=== PATIENT | male | born 1935 | race American Indian/Alaskan Native ===

== ENCOUNTER 2022-03-13 11:07 | Day surgery (SDC) | payer MEDICARE, OTHER ==
[2022-03-13] VITALS (10 sets, daily range): BP systolic 130–182; BP diastolic 68–91
[~2022-03-13] VITALS: Ht 177.8 cm; Wt 154.2 kg
[~2022-03-13 11:07] MED LIST: ASPI-1265 PO; FENO145T38 PO; FLO0.4C PO; GABA-532 PO; LANTUS SQ; LISI40TA13 PO; ROSU10TA2 PO
[2022-03-13] MEDS ORDERED: diphenhydrAMINE 25mg capsule PO PRN (11:40)
[2022-03-13] MEDS ORDERED: LORazepam 0.5 MG tablet PO PRN (11:40)
[2022-03-13] MEDS ORDERED: normal saline 1,000 ML IV SCH (11:40)
[2022-03-13] MEDS ORDERED: midazolam 1 mg/ML 2ml injection ONE (12:08)
[2022-03-13] MEDS ORDERED: heparin 1,000unit/ml 10ml vial 10 ML ONE (12:08)
[2022-03-13] MEDS ORDERED: nitroGLYCERIN-Tridil 50MG/D5W 250 ML IV ONE (12:08)
[2022-03-13] MEDS ORDERED: verapamil 2.5 mg/ml inj IV ONE (12:08)
[2022-03-13] MEDS ORDERED: iohexol 350MG/ML 100ml bottle IV ONE (12:08)
[2022-03-13] MEDS ORDERED: fentaNYL/PF 50MCG/1 ML 2ML syringe ONE (12:08)
[2022-03-13] MEDS ORDERED: LIDOcaine 1%/PF 5ML 10 MG/ML VIAL ONE ×2 (12:08→14:13)
[2022-03-13] MEDS ORDERED: LOSA100T57 PO (12:41)
[2022-03-13 14:12] LABS: ISTAT HGB ART 14.3 g/dl (14.0-18.0); ISTAT Hct ART 42 %PCV (42-52); ISTAT O2 SATURATION ARTERIAL 86 % (95-98); ISTAT SOURCE ART
[2022-03-13] MEDS ORDERED: hydrALAZINE 20mg/ml inj. IV ONE (14:29)
[2022-03-13] MEDS ORDERED: HYDROcodone/acetaminophen 5mg/325mg tablet PO PRN ×2 (15:30→15:50)
[2022-03-13] MEDS ORDERED: HYDROcodone/acetaminophen 10/325mg tab PO PRN (15:30)
[2022-03-13] MEDS: HYDROcodone/acetaminophen 10/325mg tab PO PRN ×2 (15:43→19:50)
--- NOTE | 2022-03-13 16:18 | NUR ---
Brought pt lunch tray as requested. 250ml oral fluid intake.
--- NOTE | 2022-03-13 16:45 | NUR ---
Pt ate 100% of lunch tray 250ml oral fluid intake.
--- NOTE | 2022-03-13 18:05 | NUR ---
Problems reprioritized. Patient report given, questions answered & plan of care reviewed with Leticia TRUJILLO.
--- NOTE | 2022-03-13 18:06 | NUR ---
Bedside report received from CASSANDRA Govea. Vasc band in place to right radial artery. No signs of bleeding or hematoma. Arterial puncture site to right groin stable with CDI dressing. No signs of bleeding or hematoma. Distal pulse intact with doppler check.
[2022-03-14 06:19] LABS: ISTAT Hct MIX 40 %PCV (42-52); ISTAT O2 SATURATION MIX VENOUS 65 % (60-80); ISTAT SOURCE VEN
== END 2022-03-13 20:19 | disposition home or self-care (01) ==
LOC: SSTAY O 11:07 → EDBD 11:07 → SSTAY O 20:19
PROVIDERS: ATTEND Student in an Organized Health Care Education/Training Program
DX: I35.0 Nonrheumatic aortic (valve) stenosis (principal); I12.9 Hypertensive chronic kidney disease with stage 1 through stage 4 chronic kidney disease, or unspecified chronic kidney disease; E78.5 Hyperlipidemia, unspecified; I73.9 Peripheral vascular disease, unspecified; Z79.899 Other long term (current) drug therapy; N18.9 Chronic kidney disease, unspecified; G89.29 Other chronic pain; Z98.890 Other specified postprocedural states; Z79.4 Long term (current) use of insulin; Z88.8 Allergy status to other drugs, medicaments and biological substances
CPT/HCPCS: 82803; 82948; 85014; 93005; 93456; 99152; 99153; C1769; C1894; J0360; J1644; J2250; J3010; J3490; J7030; Q0163; Q9967; A4620; A5120; A6258; A6402

== ENCOUNTER 2022-07-20 10:21 | Outpatient (CLI) | payer MEDICARE, OTHER ==
[~2022-07-20 10:21] MED LIST changes: -ASPI-1265 PO; -FENO145T38 PO; -LISI40TA13 PO; +LOSA100T57 PO
[2022-07-20 11:09] LABS: BASOPHILS # (AUTO) 0.1 X10'3 (0-0.2); BASOPHILS % (AUTO) 0.8 % (0-1); EOSINOPHILS # (AUTO) 0.1 X10'3 (0-0.9); EOSINOPHILS % (AUTO) 1.2 % (0-6); HEMATOCRIT 43.1 % (42.0-52.0); HEMOGLOBIN 13.7 g/dl (14.0-17.9); LYMPHOCYTES # (AUTO) 0.8 X10'3 (1.1-4.8); LYMPHOCYTES % (AUTO) 8.5 % (21-51); MEAN CORPUSCULAR HEMOGLOBIN 28.2 PG (27.0-31.0); MEAN CORPUSCULAR HGB CONC 31.9 g/dL (33.0-36.5); MEAN CORPUSCULAR VOLUME 88.3 FL (78-98); MEAN PLATELET VOLUME 8.9 FL (7.4-10.4); MONOCYTES # (AUTO) 0.8 X10'3 (0-0.9); MONOCYTES % (AUTO) 8.6 % (2-12); NEUTROPHILS # (AUTO) 7.2 X10'3 (1.8-7.7); NEUTROPHILS % (AUTO) 80.9 % (42-75); PLATELET COUNT 155 X10'3 (140-440); RED BLOOD COUNT 4.87 X10'6 (4.70-6.10); RED CELL DISTRIBUTION WIDTH 14.8 % (11.5-14.5); WHITE BLOOD COUNT 8.9 X10'3 (4.5-11.0)
[2022-07-20 11:16] LABS: APTT 27 SECONDS (22-32)
[2022-07-20 11:18] LABS: ALANINE AMINOTRANSFERASE 30 U/L (12-78); ALBUMIN 3.5 G/DL (3.4-5.0); ALBUMIN/GLOBULIN RATIO 0.9 (1.1-1.5); ALKALINE PHOSPHATASE 69 IU/L (46-116); ANION GAP 11 (8-16); ASPARTATE AMINO TRANSFERASE 24 U/L (10-37); BILIRUBIN,TOTAL 0.8 MG/DL (0.1-1.0); BLOOD UREA NITROGEN 23 MG/DL (7-18); BUN/CREATININE RATIO 15.4 (5.4-32.0); CHLORIDE 103 MMOL/L (99-107); CREATININE 1.49 MG/DL (0.60-1.10); GLUCOSE 117 MG/DL (70-104); SODIUM 139 MMOL/L (135-145); TOTAL CARBON DIOXIDE 25.5 MMOL/L (24-32); TOTAL PROTEIN 7.3 G/DL (6.4-8.2); eGFR 45 ML/MIN
[2022-07-20] MEDS ORDERED: IODIXANOL 320 MG/ML INFUS..BTL 100ML IV ONE (11:34)
== END 2022-07-20 23:59 | disposition home or self-care (01) ==
LOC: RAD 10:21
PROVIDERS: ATTEND Internal Medicine Cardiovascular Disease
DX: I35.0 Nonrheumatic aortic (valve) stenosis (principal); R06.02 Shortness of breath; I65.29 Occlusion and stenosis of unspecified carotid artery; I70.0 Atherosclerosis of aorta; J98.4 Other disorders of lung
CPT/HCPCS: 36415; 71046; 71275; 74174; 80053; 85025; 85610; 85730; 94010; 94727; 94729; J3490; Q9967

== ENCOUNTER 2024-04-09 14:25 | Inpatient (IN) | payer MEDICARE, OTHER ==
[~2024-04-09] VITALS: Ht 177.8 cm; Wt 148.6 kg
[~2024-04-09 14:25] MED LIST changes: +ALBU6.7H14 INH; +ASPI-611 PO; +BENZ-111 PO; +FURO40TA4 PO; +HYDR-3972 PO; +LACT1CAP26 PO; -LOSA100T57 PO; +LOSA50TA64 PO; +METO-395 PO; +POTA-366 PO; -ROSU10TA2 PO; +ROSU40TA PO
[2024-04-09] MEDS ORDERED: heparin 25,000 UNIT/250ml bag 250 ML IV PRN ×2 (14:40→16:35)
[2024-04-09] MEDS ORDERED: heparin 10,000 units/1 ML INJ IV PRN ×2 (14:45→16:35)
[2024-04-09] MEDS: heparin 25,000 UNIT/250ml bag 250 ML IV PRN (15:00)
[2024-04-09] MEDS: MESSAGE TO NURSING IV ONE ×2 (15:01→23:29)
[2024-04-09 15:05] LABS: BASOPHILS # (AUTO) 0.1 X10'3 (0-0.2); BASOPHILS % (AUTO) 0.8 % (0-1); EOSINOPHILS # (AUTO) 0.1 X10'3 (0-0.9); EOSINOPHILS % (AUTO) 1.3 % (0-6); HEMATOCRIT 38.5 % (42.0-52.0); HEMOGLOBIN 12.5 g/dl (14.0-17.9); LYMPHOCYTES # (AUTO) 0.9 X10'3 (1.1-4.8); LYMPHOCYTES % (AUTO) 9.3 % (21-51); MEAN CORPUSCULAR HEMOGLOBIN 28.9 PG (27.0-31.0); MEAN CORPUSCULAR HGB CONC 32.5 g/dL (33.0-36.5); MEAN CORPUSCULAR VOLUME 88.8 FL (78-98); MEAN PLATELET VOLUME 9.7 FL (7.4-10.4); MONOCYTES # (AUTO) 0.8 X10'3 (0-0.9); NEUTROPHILS % (AUTO) 80.6 % (42-75); PLATELET COUNT 94 X10'3 (140-440); RED BLOOD COUNT 4.33 X10'6 (4.70-6.10); RED CELL DISTRIBUTION WIDTH 15.1 % (11.5-14.5)
[2024-04-09 15:16] LABS: INR 1.1 INR; PROTHROMBIN TIME 11.3 SECONDS (9.0-12.0)
[2024-04-09 15:23] LABS: ALBUMIN 3.3 G/DL (3.4-5.0); ANION GAP 12 (8-16); BLOOD UREA NITROGEN 49 MG/DL (7-18); BUN/CREATININE RATIO 25.1 (10.0-20.0); CALCIUM 8.6 MG/DL (8.5-10.1); CHLORIDE 106 MMOL/L (99-107); CREATININE 1.95 MG/DL (0.60-1.10); GLUCOSE 84 MG/DL (70-104); POTASSIUM 5.3 MMOL/L (3.5-5.1); PRO BRAIN NATRIURETIC PEPTIDE 10131 PG/ML (0-450); SODIUM 140 MMOL/L (135-145); TOTAL CARBON DIOXIDE 22.4 MMOL/L (24-32); eCRCL 28 ML/MIN; eGFR 33 ML/MIN
[2024-04-09] MEDS: CefTRIAXone/D5W-Rocephin 1gm 50 ML IV ONE ×2 (15:35→18:08)
[2024-04-09] MEDS ORDERED: ondansetron/PF 4mg/2ml inj IV PRN (16:15)
[2024-04-09] MEDS ORDERED: potassium Cl 20 mEq SR tablet PO PRN ×2 (16:15)
[2024-04-09] MEDS ORDERED: magnesium sulf-water 4G/100mL 100 ML IV PRN (16:15)
[2024-04-09] MEDS ORDERED: magnesium Cl slow-release 64mg tablet PO PRN (16:15)
[2024-04-09] MEDS ORDERED: morphine 2 MG/ML inj. syringe IV PRN ×2 (16:15)
[2024-04-09] MEDS ORDERED: mag hydrox/Alum hydrox/simeth 30ml oral suspension PO PRN (16:15)
[2024-04-09] MEDS ORDERED: diphenhydrAMINE 25mg capsule PO PRN (16:15)
[2024-04-09] MEDS ORDERED: magnesium sulf-water 2g/50mL 50 ML IV PRN (16:15)
[2024-04-09] MEDS ORDERED: potassium Cl 40MEQ/1/2NS 520ml 520 ML IV PRN (16:15)
[2024-04-09] MEDS ORDERED: magnesium hydroxide 30ml (MOM) UD suspension PO PRN (16:15)
[2024-04-09] MEDS ORDERED: acetaminophen 325mg tablet PO PRN (16:15)
[2024-04-09] MEDS: PERFLUTREN PROTEIN-A MICROSPHR (Optison) 0.22 MG/ML 3ML VIAL IV ONE (16:31)
[2024-04-09] MEDS ORDERED: heparin 10,000 units/1 ML INJ IV ONE (16:35)
[2024-04-09 16:54] LABS: HEMOGLOBIN A1C 6.2 % (4.5-6.2)
[2024-04-09] MEDS: azithromycin/NS 500mg/250ml 250 ML IV STA (16:55)
[2024-04-09 18:23] LABS: BASOPHILS # (AUTO) 0.1 X10'3 (0-0.2); EOSINOPHILS # (AUTO) 0.1 X10'3 (0-0.9); EOSINOPHILS % (AUTO) 1.2 % (0-6); HEMATOCRIT 37.9 % (42.0-52.0); HEMOGLOBIN 12.2 g/dl (14.0-17.9); LYMPHOCYTES # (AUTO) 0.7 X10'3 (1.1-4.8); LYMPHOCYTES % (AUTO) 7.8 % (21-51); MEAN CORPUSCULAR HEMOGLOBIN 28.1 PG (27.0-31.0); MEAN CORPUSCULAR HGB CONC 32.1 g/dL (33.0-36.5); MEAN CORPUSCULAR VOLUME 87.7 FL (78-98); MEAN PLATELET VOLUME 9.9 FL (7.4-10.4); MONOCYTES # (AUTO) 0.7 X10'3 (0-0.9); NEUTROPHILS # (AUTO) 7.6 X10'3 (1.8-7.7); PLATELET COUNT 95 X10'3 (140-440); RED BLOOD COUNT 4.33 X10'6 (4.70-6.10); RED CELL DISTRIBUTION WIDTH 15.5 % (11.5-14.5); WHITE BLOOD COUNT 9.2 X10'3 (4.5-11.0)
[2024-04-09 18:29] LABS: APTT 21 SECONDS (22-32)
[2024-04-09] MEDS: K and/or MAG REPLACEMENT MC SCH (20:00)
[2024-04-09] MEDS: docusate sod 100mg capsule PO SCH (20:00)
[2024-04-10] VITALS (11 sets, daily range): BP systolic 115–126; BP diastolic 52–72; PULSE 61–74; RESP 12–18; TEMP 97.2–98; O2SAT 90–96
[2024-04-10] MEDS: heparin 10,000 units/1 ML INJ IV PRN (00:22)
[2024-04-10] MEDS: furosemide 10 MG/1 ML 10ml inj IV ONE (00:48)
[2024-04-10 07:37] LABS: BASOPHILS # (AUTO) 0.1 X10'3 (0-0.2); BASOPHILS % (AUTO) 0.8 % (0-1); EOSINOPHILS # (AUTO) 0.2 X10'3 (0-0.9); EOSINOPHILS % (AUTO) 2.4 % (0-6); HEMATOCRIT 37.7 % (42.0-52.0); HEMOGLOBIN 11.9 g/dl (14.0-17.9); LYMPHOCYTES # (AUTO) 0.6 X10'3 (1.1-4.8); LYMPHOCYTES % (AUTO) 5.7 % (21-51); MEAN CORPUSCULAR HEMOGLOBIN 28.1 PG (27.0-31.0); MEAN CORPUSCULAR HGB CONC 31.6 g/dL (33.0-36.5); MEAN CORPUSCULAR VOLUME 88.9 FL (78-98); MEAN PLATELET VOLUME 9.8 FL (7.4-10.4); MONOCYTES # (AUTO) 0.8 X10'3 (0-0.9); MONOCYTES % (AUTO) 7.3 % (2-12); NEUTROPHILS # (AUTO) 8.6 X10'3 (1.8-7.7); NEUTROPHILS % (AUTO) 83.8 % (42-75); PLATELET COUNT 94 X10'3 (140-440); RED BLOOD COUNT 4.24 X10'6 (4.70-6.10); RED CELL DISTRIBUTION WIDTH 15.3 % (11.5-14.5); WHITE BLOOD COUNT 10.3 X10'3 (4.5-11.0)
[2024-04-10 08:01] LABS: ALANINE AMINOTRANSFERASE 25 U/L (12-78); ALBUMIN/GLOBULIN RATIO 0.9 (1.1-1.5); ALKALINE PHOSPHATASE 61 IU/L (46-116); ANION GAP 9 (8-16); ASPARTATE AMINO TRANSFERASE 21 U/L (10-37); BILIRUBIN,TOTAL 0.8 MG/DL (0.1-1.0); BLOOD UREA NITROGEN 43 MG/DL (7-18); BUN/CREATININE RATIO 22.6 (10.0-20.0); CALCIUM 8.7 MG/DL (8.5-10.1); CHLORIDE 107 MMOL/L (99-107); CHOL/HDL RATIO 2.7 (0.00-4.99); CHOLESTEROL 138 MG/DL (0-200); GLUCOSE 64 MG/DL (70-104); HDL CHOLESTEROL 51 MG/DL (35-60); LDL CHOLESTEROL 68 MG/DL (50-100); MAGNESIUM 2.1 MG/DL (1.5-2.4); POTASSIUM 4.7 MMOL/L (3.5-5.1); SODIUM 142 MMOL/L (135-145); TOTAL PROTEIN 6.5 G/DL (6.4-8.2); TRIGLYCERIDES 45 MG/DL (20-135); eCRCL 29 ML/MIN; eGFR 34 ML/MIN
[2024-04-10] MEDS: MESSAGE TO NURSING IV ONE ×3 (08:40→20:05)
[2024-04-10] MEDS: furosemide 40mg/4ml inj IV SCH (09:01)
[2024-04-10] MEDS: metoprolol succinate 25mg (24-HOUR) SR. Tablet PO ONE (18:10)
[2024-04-10] MEDS: CefTRIAXone/D5W-Rocephin 1gm 50 ML IV SCH (18:10)
[2024-04-10] MEDS: guaiFENesin 200 MG/10 ML oral syrup UD cup PO PRN (22:30)
[2024-04-10] MEDS: Melatonin 3mg tablet PO PRN (22:31)
[2024-04-10] MEDS: HYDROcodone/acetaminophen 5mg/325mg tablet PO PRN (22:31)
[2024-04-11 02:00] VITALS: BP 113/52; PULSE 60; RESP 12; TEMP 97.2; O2SAT 96
[2024-04-11 03:02] LABS: ANION GAP 7 (8-16); BLOOD UREA NITROGEN 44 MG/DL (7-18); BUN/CREATININE RATIO 22.6 (10.0-20.0); CALCIUM 8.7 MG/DL (8.5-10.1); CHLORIDE 106 MMOL/L (99-107); CREATININE 1.95 MG/DL (0.60-1.10); GLUCOSE 106 MG/DL (70-104); MAGNESIUM 1.9 MG/DL (1.5-2.4); POTASSIUM 4.9 MMOL/L (3.5-5.1); SODIUM 144 MMOL/L (135-145); TOTAL CARBON DIOXIDE 30.7 MMOL/L (24-32); eCRCL 28 ML/MIN; eGFR 33 ML/MIN
[2024-04-11 03:05] LABS: BASOPHILS # (AUTO) 0.1 X10'3 (0-0.2); BASOPHILS % (AUTO) 0.8 % (0-1); EOSINOPHILS # (AUTO) 0.3 X10'3 (0-0.9); EOSINOPHILS % (AUTO) 3.4 % (0-6); HEMOGLOBIN 12.2 g/dl (14.0-17.9); LYMPHOCYTES # (AUTO) 0.7 X10'3 (1.1-4.8); LYMPHOCYTES % (AUTO) 7.3 % (21-51); MEAN CORPUSCULAR HEMOGLOBIN 28.5 PG (27.0-31.0); MEAN CORPUSCULAR HGB CONC 32.1 g/dL (33.0-36.5); MEAN PLATELET VOLUME 9.6 FL (7.4-10.4); MONOCYTES # (AUTO) 0.9 X10'3 (0-0.9); MONOCYTES % (AUTO) 9.3 % (2-12); NEUTROPHILS # (AUTO) 7.8 X10'3 (1.8-7.7); NEUTROPHILS % (AUTO) 79.2 % (42-75); PLATELET COUNT 94 X10'3 (140-440); RED BLOOD COUNT 4.27 X10'6 (4.70-6.10); RED CELL DISTRIBUTION WIDTH 15.2 % (11.5-14.5); WHITE BLOOD COUNT 9.8 X10'3 (4.5-11.0)
[2024-04-11 03:06] LABS: ALANINE AMINOTRANSFERASE 20 U/L (12-78); ALBUMIN 2.7 G/DL (3.4-5.0); ALBUMIN/GLOBULIN RATIO 0.8 (1.1-1.5); ALKALINE PHOSPHATASE 59 IU/L (46-116); ASPARTATE AMINO TRANSFERASE 19 U/L (10-37); BILIRUBIN,TOTAL 0.9 MG/DL (0.1-1.0); TOTAL PROTEIN 6.2 G/DL (6.4-8.2)
[2024-04-11] MEDS: MESSAGE TO NURSING IV ONE ×2 (03:51→11:00)
[2024-04-11 06:00] VITALS: BP 107/52; PULSE 60; RESP 17; TEMP 97.3; O2SAT 95
[2024-04-11] MEDS: clopidogrel 75mg tablet PO SCH (08:49)
[2024-04-11] MEDS: atorvastatin 20mg tablet PO SCH (08:49)
[2024-04-11] MEDS: metoprolol succinate 25mg (24-HOUR) SR. Tablet PO SCH (08:59)
[2024-04-11 18:00] VITALS: BP 113/63; PULSE 62; RESP 16; TEMP 98.9; O2SAT 95
[2024-04-11] MEDS: aspirin 81mg, enteric-coated 1 TAB TABLET.DR PO SCH (19:00)
[2024-04-11 20:00] VITALS: RESP 16; O2SAT 96
[2024-04-11 21:37] VITALS: PULSE 76; RESP 18; O2SAT 93
[2024-04-11 22:00] VITALS: BP 109/51; PULSE 65; RESP 19; TEMP 97.3; O2SAT 90
[2024-04-12] VITALS (12 sets, daily range): BP systolic 101–128; BP diastolic 47–75; PULSE 60–134; RESP 10–27; TEMP 96–98.6; O2SAT 90–95
[2024-04-12 07:01] LABS: BASOPHILS # (AUTO) 0.1 X10'3 (0-0.2); BASOPHILS % (AUTO) 0.5 % (0-1); EOSINOPHILS # (AUTO) 0.3 X10'3 (0-0.9); EOSINOPHILS % (AUTO) 3.3 % (0-6); HEMOGLOBIN 12.1 g/dl (14.0-17.9); LYMPHOCYTES # (AUTO) 0.6 X10'3 (1.1-4.8); LYMPHOCYTES % (AUTO) 5.7 % (21-51); MEAN CORPUSCULAR HEMOGLOBIN 28.1 PG (27.0-31.0); MEAN CORPUSCULAR HGB CONC 31.9 g/dL (33.0-36.5); MEAN CORPUSCULAR VOLUME 87.9 FL (78-98); MEAN PLATELET VOLUME 9.6 FL (7.4-10.4); MONOCYTES # (AUTO) 1.1 X10'3 (0-0.9); MONOCYTES % (AUTO) 10.4 % (2-12); NEUTROPHILS # (AUTO) 8.1 X10'3 (1.8-7.7); NEUTROPHILS % (AUTO) 80.1 % (42-75); PLATELET COUNT 100 X10'3 (140-440); RED BLOOD COUNT 4.32 X10'6 (4.70-6.10); RED CELL DISTRIBUTION WIDTH 15.1 % (11.5-14.5); WHITE BLOOD COUNT 10.1 X10'3 (4.5-11.0)
[2024-04-12 07:20] LABS: ALANINE AMINOTRANSFERASE 18 U/L (12-78); ALBUMIN 2.7 G/DL (3.4-5.0); ALBUMIN/GLOBULIN RATIO 0.7 (1.1-1.5); ALKALINE PHOSPHATASE 63 IU/L (46-116); ANION GAP 6 (8-16); ASPARTATE AMINO TRANSFERASE 15 U/L (10-37); BILIRUBIN,TOTAL 0.9 MG/DL (0.1-1.0); BLOOD UREA NITROGEN 40 MG/DL (7-18); BUN/CREATININE RATIO 23.3 (10.0-20.0); CALCIUM 8.6 MG/DL (8.5-10.1); CHLORIDE 105 MMOL/L (99-107); CREATININE 1.72 MG/DL (0.60-1.10); GLUCOSE 106 MG/DL (70-104); MAGNESIUM 1.9 MG/DL (1.5-2.4); POTASSIUM 4.5 MMOL/L (3.5-5.1); SODIUM 141 MMOL/L (135-145); TOTAL CARBON DIOXIDE 29.7 MMOL/L (24-32); TOTAL PROTEIN 6.4 G/DL (6.4-8.2); eCRCL 32 ML/MIN; eGFR 38 ML/MIN
[2024-04-12] MEDS: albuterol 2.5 MG/3 ML nebule NEB PRN (17:15)
[2024-04-13] VITALS (10 sets, daily range): BP systolic 100–118; BP diastolic 39–67; PULSE 58–68; RESP 16–28; TEMP 96.3–98.4; O2SAT 90–96
[2024-04-13 06:29] LABS: ALANINE AMINOTRANSFERASE 19 U/L (12-78); ALBUMIN 2.6 G/DL (3.4-5.0); ALBUMIN/GLOBULIN RATIO 0.7 (1.1-1.5); ALKALINE PHOSPHATASE 61 IU/L (46-116); ANION GAP 7 (8-16); ASPARTATE AMINO TRANSFERASE 15 U/L (10-37); BILIRUBIN,TOTAL 0.8 MG/DL (0.1-1.0); BLOOD UREA NITROGEN 42 MG/DL (7-18); BUN/CREATININE RATIO 23.7 (10.0-20.0); CALCIUM 8.8 MG/DL (8.5-10.1); CHLORIDE 103 MMOL/L (99-107); CREATININE 1.77 MG/DL (0.60-1.10); GLUCOSE 113 MG/DL (70-104); POTASSIUM 4.7 MMOL/L (3.5-5.1); SODIUM 140 MMOL/L (135-145); TOTAL CARBON DIOXIDE 30.2 MMOL/L (24-32); TOTAL PROTEIN 6.4 G/DL (6.4-8.2); eCRCL 31 ML/MIN; eGFR 37 ML/MIN
[2024-04-13 06:40] LABS: BASOPHILS # (AUTO) 0.1 X10'3 (0-0.2); BASOPHILS % (AUTO) 0.6 % (0-1); EOSINOPHILS # (AUTO) 0.4 X10'3 (0-0.9); EOSINOPHILS % (AUTO) 3.7 % (0-6); HEMATOCRIT 36.3 % (42.0-52.0); HEMOGLOBIN 11.8 g/dl (14.0-17.9); LYMPHOCYTES # (AUTO) 0.6 X10'3 (1.1-4.8); LYMPHOCYTES % (AUTO) 5.2 % (21-51); MEAN CORPUSCULAR HEMOGLOBIN 28.2 PG (27.0-31.0); MEAN CORPUSCULAR HGB CONC 32.5 g/dL (33.0-36.5); MEAN CORPUSCULAR VOLUME 86.9 FL (78-98); MEAN PLATELET VOLUME 9.8 FL (7.4-10.4); MONOCYTES # (AUTO) 1.1 X10'3 (0-0.9); NEUTROPHILS # (AUTO) 8.6 X10'3 (1.8-7.7); NEUTROPHILS % (AUTO) 80.5 % (42-75); PLATELET COUNT 109 X10'3 (140-440); RED BLOOD COUNT 4.17 X10'6 (4.70-6.10); RED CELL DISTRIBUTION WIDTH 15.1 % (11.5-14.5); WHITE BLOOD COUNT 10.6 X10'3 (4.5-11.0)
[2024-04-13] MEDS ORDERED: ipratropium/albuterol 3ml nebule NEB PRN (21:30)
[2024-04-13] MEDS: methylPREDNISolone sod succ 125mg/2ml vial IV ONE (23:16)
[2024-04-14] VITALS (7 sets, daily range): BP systolic 122–125; BP diastolic 63–70; PULSE 65–79; RESP 13–20; TEMP 97.4–98.2; O2SAT 91–96
[2024-04-14 07:05] LABS: BASOPHILS % (AUTO) 0.1 % (0-1); EOSINOPHILS % (AUTO) 0 % (0-6); HEMATOCRIT 38.8 % (42.0-52.0); HEMOGLOBIN 12.6 g/dl (14.0-17.9); LYMPHOCYTES # (AUTO) 0.2 X10'3 (1.1-4.8); LYMPHOCYTES % (AUTO) 1.9 % (21-51); MEAN CORPUSCULAR HEMOGLOBIN 28.5 PG (27.0-31.0); MEAN CORPUSCULAR HGB CONC 32.4 g/dL (33.0-36.5); MEAN CORPUSCULAR VOLUME 87.9 FL (78-98); MEAN PLATELET VOLUME 9.5 FL (7.4-10.4); MONOCYTES # (AUTO) 0.3 X10'3 (0-0.9); MONOCYTES % (AUTO) 2.5 % (2-12); NEUTROPHILS % (AUTO) 95.5 % (42-75); PLATELET COUNT 115 X10'3 (140-440); RED BLOOD COUNT 4.41 X10'6 (4.70-6.10); WHITE BLOOD COUNT 10.5 X10'3 (4.5-11.0)
[2024-04-14 07:50] LABS: ALANINE AMINOTRANSFERASE 27 U/L (12-78); ALBUMIN 2.6 G/DL (3.4-5.0); ALBUMIN/GLOBULIN RATIO 0.6 (1.1-1.5); ALKALINE PHOSPHATASE 68 IU/L (46-116); ANION GAP 8 (8-16); ASPARTATE AMINO TRANSFERASE 22 U/L (10-37); BILIRUBIN,TOTAL 0.6 MG/DL (0.1-1.0); BLOOD UREA NITROGEN 47 MG/DL (7-18); BUN/CREATININE RATIO 24.2 (10.0-20.0); CALCIUM 8.9 MG/DL (8.5-10.1); CHLORIDE 103 MMOL/L (99-107); CREATININE 1.94 MG/DL (0.60-1.10); GLUCOSE 194 MG/DL (70-104); POTASSIUM 5.1 MMOL/L (3.5-5.1); SODIUM 139 MMOL/L (135-145); TOTAL CARBON DIOXIDE 28.4 MMOL/L (24-32); TOTAL PROTEIN 6.8 G/DL (6.4-8.2); eCRCL 28 ML/MIN; eGFR 33 ML/MIN
[2024-04-14] MEDS: methylPREDNISolone sod succ 125mg/2ml vial IV SCH (10:12)
[2024-04-14] MEDS: heparin, porcine 5000 units/ml vial SQ SCH (20:58)
[2024-04-15 02:00] VITALS: BP 132/66; PULSE 65; RESP 16; TEMP 97.6; O2SAT 94
[2024-04-15 05:37] LABS: HBSAG SCREEN Negative (Negative); HEP B CORE AB, IGM Negative (Negative); HEP B CORE AB, TOT Negative (Negative)
[2024-04-15 07:00] VITALS: BP 124/68; PULSE 65; RESP 16; TEMP 97.8; O2SAT 93
[2024-04-15 08:00] VITALS: RESP 16; O2SAT 93
[2024-04-15 11:00] VITALS: BP 149/81; PULSE 76; RESP 16; TEMP 97.6; O2SAT 90
[2024-04-15] MEDS: HYDROcodone/acetaminophen 10/325mg tab PO PRN (13:05)
[2024-04-15 14:15] VITALS: RESP 16
== END 2024-04-15 15:09 | DRG 280 ==
LOC: ER 14:25 → ED HOLD 16:30 → PCU 3S 04-10 02:00
PROVIDERS: ADMIT Internal Medicine; ATTEND Internal Medicine
DX: I13.0 Hypertensive heart and chronic kidney disease with heart failure and stage 1 through stage 4 chronic kidney disease, or unspecified chronic kidney disease (principal); I50.33 Acute on chronic diastolic (congestive) heart failure; I21.A1 Myocardial infarction type 2; J18.9 Pneumonia, unspecified organism; J44.0 Chronic obstructive pulmonary disease with (acute) lower respiratory infection; N17.9 Acute kidney failure, unspecified; Z68.42 Body mass index [BMI] 45.0-49.9, adult; E78.00 Pure hypercholesterolemia, unspecified; N18.30 Chronic kidney disease, stage 3 unspecified; E11.22 Type 2 diabetes mellitus with diabetic chronic kidney disease; E87.5 Hyperkalemia; Z20.822 Contact with and (suspected) exposure to COVID-19; E11.51 Type 2 diabetes mellitus with diabetic peripheral angiopathy without gangrene; E66.9 Obesity, unspecified; N40.0 Benign prostatic hyperplasia without lower urinary tract symptoms; G89.29 Other chronic pain; M54.50 Low back pain, unspecified; Z95.2 Presence of prosthetic heart valve; Z91.148 Patient's other noncompliance with medication regimen for other reason; Z95.0 Presence of cardiac pacemaker; Z79.4 Long term (current) use of insulin; Z79.899 Other long term (current) drug therapy; Z87.891 Personal history of nicotine dependence
CPT/HCPCS: 36415; 71045; 80048; 80053; 80061; 82948; 83036; 83735; 83880; 84145; 84484; 85025; 85610; 85730; 86704; 86705; 87081; 87340; 87811; 93005; 93306; 94640; 94664; 94668; 94760; 97110; 97116; 97161; 97530; 97535; 99285; A4340; A4615; G0378; J0456; J0696; J1644; J1940; J2919; J7040